=== PATIENT | male | born 1995 | race Caucasian/White ===

== ENCOUNTER 2018-10-11 12:17 | Emergency (ER) | payer SELFPAY ==
[~2018-10-11] VITALS: Ht 172.7 cm; Wt 63.5 kg
[2018-10-11 12:45] VITALS: BP 110/72
--- NOTE | 2018-10-11 13:09 | EKG ---
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
[2018-10-11 13:10] LABS: BASO % 1 % (0-3); EOS # 0.2 x10^3/uL (0.0-0.7); EOS % 5 % (0-3); HEMATOCRIT 42.4 % (39.0-53.0); HEMOGLOBIN 14.8 g/dL (13.0-17.5); LYMPH # 1.3 x10^3/uL (1.0-4.8); LYMPH % 29 % (24-48); MEAN CORPUSCULAR HEMOGLOBIN 31 pg (25-35); MEAN CORPUSCULAR HGB CONC 35 g/dL (31-37); MEAN CORPUSCULAR VOLUME 88 fL (79-100); MONO # 0.4 x10^3/uL (0.0-1.1); MONO % 8 % (0-9); NEUT # 2.6 x10^3/uL (1.8-7.7); NEUT % 58 % (31-73); PLATELET COUNT 197 x10^3/uL (140-400); RED BLOOD COUNT 4.82 x10^6/uL (4.30-5.70); RED CELL DISTRIBUTION WIDTH 12.9 % (11.5-14.5); WHITE BLOOD COUNT 4.5 x10^3/uL (4.0-11.0)
--- NOTE | 2018-10-11 13:11 | PHYS DOC ---
Past Medical History Additional Past Medical Histor: SVT, ABLATION Additional Past Surgical Histo: ABLATION Additional Information: SMOKES ALMOST 1 PACK/DAY Alcohol Use: Occasionally Additional Information: DRINKS TWICE A WEEK Drug Use: None Adult General Chief Complaint Chief Complaint: CHEST PAIN [facility] HPI Patient is a 22 year old male who presents to the emergency department via EMS with complaints of chest pain while he was at work today. 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 Patient states the discomfort is similar to the discomfort he experiences before he has had prior episodes of SVT. Patient states she had an ablation for treatment of SVT a few years ago. He currently rates his pain a 2 out of 10 on the pain scale, he denies any alleviating or exacerbating factors. Patient states that his SVT has been controlled with ablation does not take any medications on a daily basis. He does smoke cigarettes about a pack a day. ROS Patient denies any syncope, dizziness, palpitations, shortness of breath, wheezing, swelling of extremities, diaphoresis, nausea, vomiting, diarrhea, abdominal pain, or back pain at this time. Pt states when the sx first began he felt like he couldn't catch his breath. He denies any recent fever, cough, or congestion. Patient denies any recent illicit drug use, states that he stop smoking marijuana over 2 weeks ago. He reports that he is a social drinker. All other ROS is neg unless otherwise noted in HPI. Review of Systems Review of Systems See Above Current Medications Current Medications Current Medications Medications (Trade) Dose Ordered Sig/Yamileth Start Time Stop Time Status Last Admin Dose Admin Aspirin (Kevin Aspirin) 325 mg 1X ONCE 10/11/18 13:15 10/11/18 13:16 DC Allergies Allergies Allergies Coded Allergies Type Severity Reaction Last Updated Verified No Known Drug Allergies 10/11/18 No Physical Exam Physical Exam See Above Constitutional: Well developed, well nourished, no acute distress, non-toxic appearance. [] HENT: Normocephalic, atraumatic, bilateral external ears normal, oropharynx moist, no oral exudates, nose normal. [] Eyes: PERRLA, EOMI, conjunctiva normal, no discharge. [] Neck: Normal range of motion, no tenderness, supple, no stridor. [] Cardiovascular:Heart rate regular rhythm, no murmur [] Lungs & Thorax: Bilateral breath sounds clear to auscultation, respirations even and unlabored, chest nontender to palpation [] Abdomen: Bowel sounds normal, soft, no tenderness, no masses, no pulsatile masses. [] Skin: Warm, dry, no erythema, no rash. [] Extremities: No cyanosis, no clubbing, ROM intact, no edema. [] Neurologic: Alert and oriented X 3, no focal deficits noted. [] Psychologic: Affect normal, judgement normal, mood normal. [] Current Patient Data Vital Signs Vital Signs Date Time Temp Pulse Resp B/P (MAP) Pulse Ox O2 Delivery O2 Flow Rate FiO2 10/11/18 12:23 98.5 51 16 128/83 (98) 99 Room Air 98.5 Lab Values Laboratory Tests Test 10/11/18 12:27 White Blood Count 4.5 x10^3/uL (4.0-11.0) Red Blood Count 4.82 x10^6/uL (4.30-5.70) Hemoglobin 14.8 g/dL (13.0-17.5) Hematocrit 42.4 % (39.0-53.0) Mean Corpuscular Volume 88 fL (79-100) Mean Corpuscular Hemoglobin 31 pg (25-35) Mean Corpuscular Hemoglobin Concent 35 g/dL (31-37) Red Cell Distribution Width 12.9 % (11.5-14.5) Platelet Count 197 x10^3/uL (140-400) Neutrophils (%) (Auto) 58 % (31-73) Lymphocytes (%) (Auto) 29 % (24-48) Monocytes (%) (Auto) 8 % (0-9) Eosinophils (%) (Auto) 5 % (0-3) H Basophils (%) (Auto) 1 % (0-3) Neutrophils # (Auto) 2.6 x10^3/uL (1.8-7.7) Lymphocytes # (Auto) 1.3 x10^3/uL (1.0-4.8) Monocytes # (Auto) 0.4 x10^3/uL (0.0-1.1) Eosinophils # (Auto) 0.2 x10^3/uL (0.0-0.7) Basophils # (Auto) 0.0 x10^3/uL (0.0-0.2) Prothrombin Time 14.4 SEC (11.7-14.0) H Prothrombin Time INR 1.2 (0.8-1.1) H PTT 30 SEC (24-38) D-Dimer (Carmen) < 0.27 ug/mlFEU Sodium Level 140 mmol/L (136-145) Potassium Level 3.4 mmol/L (3.5-5.1) L Chloride Level 103 mmol/L (98-107) Carbon Dioxide Level 26 mmol/L (21-32) Anion Gap 11 (6-14) Blood Urea Nitrogen 10 mg/dL (8-26) Creatinine 0.8 mg/dL (0.7-1.3) Estimated GFR (Cockcroft-Gault) 120.9 BUN/Creatinine Ratio 13 (6-20) Glucose Level 101 mg/dL (70-99) H Calcium Level 9.2 mg/dL (8.5-10.1) Magnesium Level 1.8 mg/dL (1.8-2.4) Total Bilirubin 1.3 mg/dL (0.2-1.0) H Aspartate Amino Transferase (AST) 13 U/L (15-37) L Alanine Aminotransferase (ALT) 11 U/L (16-63) L Alkaline Phosphatase 46 U/L (46-116) Troponin I Quantitative < 0.017 ng/mL (0.000-0.055) ME-Skn-D-Type Natriuretic Peptide 56 pg/mL (0-124) Total Protein 7.3 g/dL (6.4-8.2) Albumin 4.3 g/dL (3.4-5.0) Albumin/Globulin Ratio 1.4 (1.0-1.7) Laboratory Tests 10/11/18 12:27 Laboratory Tests 10/11/18 12:27 EKG EKG 1221- Sinus ayush rate 55, no STEMI read by Dr. Sanders[] Radiology/Procedures Radiology/Procedures PROCEDURE: CHEST PA & LATERAL EXAM: Chest, 2 views. HISTORY: Chest pain. COMPARISON: None. FINDINGS: 2 views of the chest are obtained. There is no infiltrate, pleural effusion or pneumothorax. The heart is normal in size. IMPRESSION: No acute pulmonary finding.[] Course & Med Decision Making Course & Med Decision Making Pertinent Labs and Imaging studies reviewed. (See chart for details) dx: atypical chest pain, anxiety EKG negative for acute findings. PT denies pain at this time. CBC unremarkable, CMP no acute findings, troponin <0.017, CXR negative, PT/INR WNL, BNP normal, D-dimer normal Discussed pt's stress levels at length, advised pt that anxiety can present as chest discomfort. PT verbalized having a lot of stress related to the care of his child. Recommend that patient follow up with a mental health specialist for further evaluation of anxiety. Follow up with your lobster man if symptoms persist, return to the ER if symptoms worsen. [] Dragon Disclaimer Dragon Disclaimer This electronic medical record was generated, in whole or in part, using a voice recognition dictation system. Departure Departure Impression: Primary Impression: Atypical chest pain Additional Impression: Anxiety Disposition: 01 HOME, SELF-CARE Condition: STABLE Patient Instructions: Anxiety and Panic Attacks, [id number], Chest Pain (Nonspecific)-Brief Additional Instructions: Follow up with a mental health specialist for further evaluation and treatment of anxiety symptoms. Home to rest, STOP SMOKING. Follow up with your lobster man if symptoms persist, return to the ER if symptoms worsen. Problem Qualifiers MONICA DAMON [employer] SECRETARY Oct 11, 2018 13:11
[2018-10-11] MEDS ORDERED: ASPIRIN 325 MG TABLET PO ONE (13:15)
[2018-10-11 13:19] LABS: PARTIAL THROMBOPLASTIN TIME 30 SEC (24-38); PROTHROMBIN TIME PATIENT 14.4 SEC (11.7-14.0)
--- NOTE | 2018-10-11 13:19 | RAD ---
EXAM: Chest, 2 views. HISTORY: Chest pain. COMPARISON: None. FINDINGS: 2 views of the chest are obtained. There is no infiltrate, pleural effusion or pneumothorax. The heart is normal in size. IMPRESSION: No acute pulmonary finding. Electronically signed by: Arelis Vogel MD (10/11/2018 1:16 PM) [place] [id number]
[2018-10-11 13:27] LABS: D-DIMER < 0.27 ug/mlFEU (0.00-0.50)
[2018-10-11 13:37] LABS: CALCIUM 9.2 mg/dL (8.5-10.1); CREATININE 0.8 mg/dL (0.7-1.3); GFR 120.9; POTASSIUM 3.4 mmol/L (3.5-5.1)
[2018-10-11 13:42] LABS: ALBUMIN 4.3 g/dL (3.4-5.0); ALBUMIN/GLOBULIN RATIO 1.4 (1.0-1.7); MAGNESIUM 1.8 mg/dL (1.8-2.4); TOTAL BILIRUBIN 1.3 mg/dL (0.2-1.0); TOTAL PROTEIN 7.3 g/dL (6.4-8.2)
== END 2018-10-11 14:40 | disposition home or self-care (01) ==
LOC: ER 12:17
DX: R07.89 Other chest pain (principal); F41.9 Anxiety disorder, unspecified; F17.210 Nicotine dependence, cigarettes, uncomplicated
CPT/HCPCS: 36415; 71046; 80053; 83735; 83880; 84484; 85025; 85379; 85610; 85730; 93005; 99285-25